=== PATIENT | female | born 1975 | race Caucasian/White ===

== ENCOUNTER → 2024-02-28 | Outpatient (REF) | payer BC, OTHER ==
[2024-02-28 13:09] LABS: APPEARANCE, URINE CLEAR (CLEAR); BACTERIA, URINE AUTO NEGATIVE (NEGATIVE); BILIRUBIN, URINE AUTO NEGATIVE (NEGATIVE); BLOOD, URINE BLOOD 1+ (NEGATIVE); COLOR, URINE STRAW (YELLOW); GLUCOSE, URINE (UA) AUTO NEGATIVE (NEGATIVE); KETONE, URINE AUTO NEGATIVE (NEGATIVE); LEUKOCYTE ESTERASE, URINE AUTO 2+ (NEGATIVE); MUCUS, URINE SMALL (NEGATIVE); NITRITE, URINE AUTO NEGATIVE (NEGATIVE); PROTEIN, URINE AUTO NEGATIVE (NEGATIVE); RBC, URINE AUTO 2 /HPF (0-3); SQUAMOUS EPITHELIAL CELL UR AU 0 /HPF (0-6); UROBILINOGEN, URINE AUTO 0.2 mg/dL (0.0-2.0); WBC, URINE AUTO 50 /HPF (0-3)
== END ==
LOC: M SMT 12:28
PROVIDERS: ATTEND Nurse Practitioner Family
DX: R31.29 Other microscopic hematuria (principal)

== ENCOUNTER 2024-06-24 12:15 | Day surgery (SDC) | payer BC ==
[2024-06-24] VITALS (8 sets, daily range): BP systolic 119–134; BP diastolic 67–74; TEMP 97.2–98.9; O2SAT 95–98
[~2024-06-24] VITALS: Ht 160 cm; Wt 96.2 kg
[~2024-06-24 12:15] MED LIST changes: -ACET-907 PO; -ACETAMINOPHEN 325 MG TAB PO PRN; -COLA100C5 PO; -ISOVUE-300 61% 100ML VIAL As Ordered ONE; -LIDOCAINE 1% MDV 20ML VIAL As Ordered ONE; +LIDOCAINE 2% 100MG/5ML SDV (FOR ANES.) As Ordered ONE; +MIDAZOLAM INJ 2MG/2ML VIAL As Ordered ONE; -MORPHINE 2 MG/ML 1ML VIAL IV PRN; -ONDANSETRON 4MG 2ML VIAL IV PRN; -PERCOCET 5MG/325MG TAB PO PRN; -PERCOCET PO; +ROCURONIUM BROMIDE 50MG/5ML VIAL As Ordered ONE; +SUGAMMADEX SODIUM 500 MG/5 ML VIAL (BRIDION) As Ordered ONE; +fentaNYL 100 MCG/2 ML INJECTION As Ordered ONE; +propofoL 200 MG/20 ML VIAL As Ordered ONE
[2024-06-24] MEDS ORDERED: PERCOCET 5MG/325MG TAB PO PRN (12:20)
[2024-06-24] MEDS: LR 1,000 ML IV SCH (12:25)
[2024-06-24] MEDS: ceFAZolin SOD 2 GM in IV 1 EA IV ONE (13:19)
[2024-06-24] MEDS ORDERED: ACETAMINOPHEN 1000MG/100ML IV BAG As Ordered ONE (13:21)
[2024-06-24] MEDS ORDERED: dexmedeTOMIDine (4MCG/ML)200MCG/50ML BTL (PRECEDEX) As Ordered ONE (13:47)
[2024-06-24] MEDS: ISOVUE-300 61% 100ML VIAL As Ordered ONE (14:30)
[2024-06-24] MEDS ORDERED: fentaNYL 100 MCG/2 ML INJECTION IV PRN (14:55)
[2024-06-24] MEDS ORDERED: ONDANSETRON 4MG 2ML VIAL IV PRN (14:55)
[2024-06-24] MEDS: ONDANSETRON 4MG 2ML VIAL IV PRN (15:25)
[2024-06-24] MEDS: PROMETHAZINE 25MG/ML 1ML VIAL IV PRN (15:31)
[2024-06-24 16:02] LABS: HEMATOCRIT 37.4 % (36.0-47.0); HEMOGLOBIN 12.1 g/dl (12.0-15.5); MEAN CORPUSCULAR HEMOGLOBIN 28.1 pg (27.0-33.0); MEAN CORPUSCULAR HGB CONC 32.4 g/dl (32.0-36.5); PLATELET COUNT, AUTOMATED 191 10^3/uL (150-450); WHITE BLOOD COUNT 9.2 10^3/uL (4.0-10.0)
[2024-06-24] MEDS: oxyCODONE 5MG TAB PO PRN (16:21)
[2024-06-24 16:35] LABS: BLOOD UREA NITROGEN 16 MG/DL (9-23); CALCIUM LEVEL 8.3 MG/DL (8.5-10.1); CARBON DIOXIDE LEVEL 22 MMOL/L (20-31); CHLORIDE LEVEL 107 MMOL/L (98-107); CREATININE FOR GFR 0.77 MG/DL (0.55-1.30); GLOMERULAR FILTRATION RATE > 60.0 (>51); GLUCOSE, FASTING 142 MG/DL (60-100); POTASSIUM SERUM 4.2 MMOL/L (3.5-5.1); SODIUM LEVEL 141 MMOL/L (136-145)
[2024-06-24] MEDS: HYDROMORPHONE HCL 0.5 MG/ 0.5 ML SYRINGE IV PRN (16:39)
[2024-06-24] MEDS: NS (Normal Saline) 0.9% 1,000 ML IV SCH (17:07)
[2024-06-24] MEDS: DOCUSATE SODIUM 100MG CAPSULE PO SCH (21:07)
[2024-06-24] MEDS: ceFAZolin SOD 1 GM in DEXTROSE 5% (D5W) ADV/MINI-BAG 50 ML IV SCH (21:07)
[2024-06-24] MEDS: PERCOCET 5MG/325MG TAB PO PRN (21:35)
[2024-06-24] MEDS ORDERED: ACET-907 PO (22:57)
[2024-06-24] MEDS ORDERED: HOME MED LIST COMPLETE! XX SCH (23:00)
[2024-06-25 01:00] VITALS: BP 122/63; TEMP 98.7; O2SAT 95
[2024-06-25 05:00] VITALS: BP 115/60; TEMP 99.2; O2SAT 95
[2024-06-25 06:05] LABS: HEMATOCRIT 33.7 % (36.0-47.0); HEMOGLOBIN 10.8 g/dl (12.0-15.5); MEAN CORPUSCULAR HEMOGLOBIN 28.6 pg (27.0-33.0); MEAN CORPUSCULAR VOLUME 89.2 fl (80.0-96.0); PLATELET COUNT, AUTOMATED 218 10^3/uL (150-450); RED BLOOD COUNT 3.78 10^6/uL (4.00-5.40); WHITE BLOOD COUNT 9.6 10^3/uL (4.0-10.0)
[2024-06-25 06:56] LABS: BLOOD UREA NITROGEN 14 MG/DL (9-23); CARBON DIOXIDE LEVEL 20 MMOL/L (20-31); CHLORIDE LEVEL 109 MMOL/L (98-107); CREATININE FOR GFR 0.76 MG/DL (0.55-1.30); GLOMERULAR FILTRATION RATE > 60.0 (>51); GLUCOSE, FASTING 124 MG/DL (60-100); POTASSIUM SERUM 5.3 MMOL/L (3.5-5.1); SODIUM LEVEL 138 MMOL/L (136-145)
[2024-06-25 07:45] VITALS: BP 122/60; TEMP 98.6; O2SAT 96
[2024-06-25] MEDS ORDERED: COLA100C5 PO (08:58)
[2024-06-25] MEDS ORDERED: PERCOCET PO (08:58)
[2024-06-25 11:06] LABS: HEMATOCRIT 33.9 % (36.0-47.0)
[2024-06-25 11:31] LABS: BLOOD UREA NITROGEN 15 MG/DL (9-23); CALCIUM LEVEL 8.3 MG/DL (8.5-10.1); CARBON DIOXIDE LEVEL 25 MMOL/L (20-31); CHLORIDE LEVEL 105 MMOL/L (98-107); CREATININE FOR GFR 0.81 MG/DL (0.55-1.30); GLOMERULAR FILTRATION RATE > 60.0 (>51); GLUCOSE, FASTING 119 MG/DL (60-100); POTASSIUM SERUM 3.8 MMOL/L (3.5-5.1); SODIUM LEVEL 141 MMOL/L (136-145)
[2024-06-25] MEDS: ACETAMINOPHEN 325 MG TAB PO PRN (13:40)
== END 2024-06-25 14:40 | disposition home or self-care (01) ==
LOC: M SDC 12:15 → M PED 17:07 → M SDC 06-25 14:40
PROVIDERS: ATTEND Urology
DX: N20.0 Calculus of kidney (principal)
CPT/HCPCS: 36415; 50081; 76000; 80048; 82365; 85014; 85018; 85027; C1769; C1887; C2617; J0131; J0690; J1100; J1171; J2250; J2405; J2550; J3010; Q9967

== ENCOUNTER → 2024-06-24 | Outpatient (CLI) | payer BC ==
[~2024-06-24] MED LIST: ACET-907 PO; ACETAMINOPHEN 325 MG TAB PO PRN; APPLE CIDER VINEGAR; COLA100C5 PO; ISOVUE-300 61% 100ML VIAL As Ordered ONE; LIDOCAINE 1% MDV 20ML VIAL As Ordered ONE; MORPHINE 2 MG/ML 1ML VIAL IV PRN; ONDANSETRON 4MG 2ML VIAL As Ordered ONE; ONDANSETRON 4MG 2ML VIAL IV PRN; PERCOCET 5MG/325MG TAB PO PRN; PERCOCET PO; [UNRECOGNIZED DRUG - OTHER] PO
[2024-06-24 09:00] VITALS: TEMP 97.5
[2024-06-24] MEDS: NS (Normal Saline) 0.9% 1,000 ML IV SCH (09:10)
[2024-06-24] MEDS: CIPROFLOXACIN 400 MG in IV 1 EA IV ONE (09:31)
[2024-06-24] MEDS: fentaNYL 100 MCG/2 ML INJECTION IV PRN (10:19)
[2024-06-24] MEDS: MIDAZOLAM INJ 2MG/2ML VIAL IV PRN (10:19)
[2024-06-24] MEDS: ONDANSETRON 4MG 2ML VIAL IV ONE (11:01)
[2024-06-24] MEDS: ISOVUE-300 61% 100ML VIAL IV ONE (11:07)
[2024-06-24] MEDS: LIDOCAINE 1% MDV 20ML VIAL SC ONE (11:08)
[2024-06-24 11:30] VITALS: BP 151/86; O2SAT 98
== END ==
LOC: M IRPRO 08:54
PROVIDERS: ATTEND Urology
DX: N20.0 Calculus of kidney (principal)
CPT/HCPCS: 50432; 76942; 99152; 99153; C1758; C1894; J0744; J2250; J2405; J3010; Q9967